=== PATIENT | male | born 1965 | race Two or more races ===

== ENCOUNTER 2020-05-06 11:29 | Inpatient (IN) | payer OTHER ==
[~2020-05-06] VITALS: Ht 175.3 cm; Wt 80.7 kg
[2020-05-06] MEDS ORDERED: IODIXANOL 320MG/ML 100ML BTL IV ONE (11:48)
[2020-05-06] MEDS ORDERED: LIDOCAINE 2%HCL (LOCAL ANESTH.) INJ 20ML MDV ONE (11:48)
[2020-05-06 11:56] LABS: Basophils # (auto) 0 10 ^3/uL (0-0.2); Basophils % (auto) 0.2 % (0.0-2.0); Eosinophils # (auto) 0 10 ^3/uL (0-0.8); Eosinophils % (auto) 0.3 % (0.0-7.0); Hematocrit 43.6 % (41.0-53.0); Hemoglobin 14.5 g/dL (13.5-17.5); Lymphocytes # (auto) 1.4 10 ^3/uL (0.4-5.4); Lymphocytes % (auto) 10.7 % (10.0-50.0); Mean Corpuscular Hemoglobin 30.5 pg (28.0-32.0); Mean Corpuscular Hgb Conc. 33.3 g/dL (32.0-36.0); Mean Corpuscular Volume 91.7 fL (80.0-100.0); Monocytes # (auto) 0.6 10 ^3/uL (0-1.3); Monocytes % (auto) 4.4 % (0.0-12.0); Neutrophils # (auto) 10.9 10 ^3/uL (1.6-8.6); Neutrophils % (auto) 84.4 % (37.0-80.0); Platelet Count (auto) 232 10^3/uL (140-450); Red Blood Cells 4.76 10^6/uL (4.5-5.90); Red Cell Distribution Width 12.9 % (11.8-14.3)
[2020-05-06 12:11] LABS: INR 1.01 (0.9-1.15); Partial Thromboplastin Time 26.5 sec (23.64-32.05)
[2020-05-06] MEDS ORDERED: MIDAZOLAM HCL 1MG/1ML-2 ML VIAL ONE (12:14)
[2020-05-06] MEDS ORDERED: fentaNYL CITRATE 100 MCG/2 ML VL ONE (12:14)
[2020-05-06] MEDS ORDERED: ANGIOMAX 250 MG VIAL IV ONE (12:14)
[2020-05-06 12:15] LABS: Albumin 4.2 g/dL (3.4-5.0); Calcium 8.9 mg/dL (8.5-10.1); Magnesium 2.4 mg/dL (1.6-2.6); Potassium 4.1 mmol/L (3.5-5.1)
[2020-05-06] MEDS ORDERED: SODIUM CHL 0.9% 50 ML ONE (12:15)
[2020-05-06 12:22] LABS: Bilirubin, Total 0.5 mg/dL (0.2-1.0)
[2020-05-06] MEDS ORDERED: EPTIFIBATIDE INJ (2MG/ML) 10ML VIAL IV ONE (12:33)
[2020-05-06] MEDS ORDERED: TICAGRELOR 90 MG TAB ONE (13:00)
[2020-05-06] MEDS ORDERED: ACETAMINOPHEN 500 MG TAB PO PRN (13:30)
[2020-05-06] MEDS ORDERED: NITROGLYCERIN 0.4 MG SL TAB SL PRN (13:30)
[2020-05-06] MEDS ORDERED: HYDROcodone-ACET 5/325MG TAB PO PRN (13:30)
[2020-05-06] MEDS ORDERED: MORPHINE SULF INJ 2 MG/ML SYRINGE 1ML IV PRN ×2 (13:30)
[2020-05-06] MEDS ORDERED: ONDANSETRON HCL 4 MG/2 ML VIAL IV PRN (13:30)
[2020-05-06] MEDS: SODIUM CHLOR 0.9% PF (SALINE LOCK) 10ML VIAL/SYR IV SCH ×2 (14:00→21:57)
--- NOTE | 2020-05-06 15:30 | NUR ---
Telemetry admit from label remover REJI PARSON admitted to Telemetry unit after SBAR received from label remover RN. Patient oriented to ROBIN MCELROY RN primary RN, unit, room, bed, and unit policies regarding patient care. Patient now on continuous telemetry monitoring, tele box # 58 and telemetry reading on arrival to unit is sinus rhythm 81. Patient placed on oxygen 2L NC, respirations even and unlabored. Patient is s/p left heart cath, dressing to right groin is clean, dry and intact. No signs of bleeding or hematoma noted at this time. Patient denies pain at this time. Patient instructed to be on bed rest until 1939, patient verbalized understanding. Bed in low and locked position, call light within reach. Will continue to monitor Q1 hour and PRN.
[2020-05-06 16:26] VITALS: BP 119/99
[2020-05-06 16:32] VITALS: BP 119/99
[2020-05-06] MEDS ORDERED: OPTISON 3ml Vial for INJ IV ONE (17:23)
--- NOTE | 2020-05-06 17:40 | NUR ---
outer diameter technician at bedside
--- NOTE | 2020-05-06 19:08 | NUR ---
Closing Note Report given to retail shift supervisor RN. No signs or symptoms of distress noted at this time.
--- NOTE | 2020-05-06 21:25 | NUR ---
Paged doctor Pino with the critical Troponin result of 107.000
--- NOTE | 2020-05-06 21:40 | NUR ---
Doctor Alvarez confirmed to receive my message regarding critical Troponin of 107.000. No orders.
[2020-05-06] MEDS: METOPROLOL TARTRATE 25 MG TAB PO SCH (21:58)
[2020-05-06] MEDS: PANTOPRAZOLE 40 MG TAB PO SCH (21:59)
[2020-05-06 22:00] VITALS: BP 125/80
[2020-05-07 02:25] LABS: Basophils # (auto) 0.1 10 ^3/uL (0-0.2); Basophils % (auto) 0.5 % (0.0-2.0); Eosinophils # (auto) 0 10 ^3/uL (0-0.8); Eosinophils % (auto) 0.4 % (0.0-7.0); Hemoglobin 15.5 g/dL (13.5-17.5); Lymphocytes # (auto) 1.6 10 ^3/uL (0.4-5.4); Lymphocytes % (auto) 12.9 % (10.0-50.0); Mean Corpuscular Hemoglobin 30.9 pg (28.0-32.0); Mean Corpuscular Hgb Conc. 33.8 g/dL (32.0-36.0); Mean Corpuscular Volume 91.5 fL (80.0-100.0); Monocytes # (auto) 0.8 10 ^3/uL (0-1.3); Monocytes % (auto) 6.6 % (0.0-12.0); Neutrophils # (auto) 10.1 10 ^3/uL (1.6-8.6); Neutrophils % (auto) 79.6 % (37.0-80.0); Nucleated Red Blood Cells % 0.1 %; Platelet Count (auto) 240 10^3/uL (140-450); Red Blood Cells 5.03 10^6/uL (4.5-5.90); Red Cell Distribution Width 13.3 % (11.8-14.3); White Blood Cell 12.7 10^3/uL (4.4-10.8)
[2020-05-07 02:40] LABS: Cholesterol 226 mg/dL (< 200)
[2020-05-07 02:42] LABS: Albumin 3.8 g/dL (3.4-5.0); Potassium 4.1 mmol/L (3.5-5.1)
[2020-05-07 02:43] LABS: HDL Cholesterol 37 mg/dL (40-59); LDL Cholesterol 154 mg/dL (< 100); Triglycerides 223 mg/dL (< 150)
[2020-05-07 03:01] LABS: Bilirubin, Total 0.9 mg/dL (0.2-1.0); Total Protein 7.8 g/dL (6.4-8.2)
[2020-05-07 05:00] VITALS: BP 107/70
[2020-05-07] MEDS: SODIUM CHLOR 0.9% PF (SALINE LOCK) 10ML VIAL/SYR IV SCH ×2 (06:16→14:03)
--- NOTE | 2020-05-07 07:00 | NUR ---
Opening Shift Note Received report on the patient. Awake lying in bed. Patient shows no signs of distress at this time. Discussed the plan of care with the patient. Bed in lowest position, side rails up x2, and call light is within reach.
[2020-05-07 09:00] VITALS: BP 98/65
[2020-05-07] MEDS ORDERED: TICAGRELOR 90 MG TAB PO SCH (10:00)
[2020-05-07] MEDS ORDERED: LOSARTAN POTASSIUM 25 MG TAB PO SCH (10:00)
[2020-05-07] MEDS ORDERED: ASPirin 81 mg TAB PO SCH (10:00)
[2020-05-07] MEDS: METOPROLOL TARTRATE 25 MG TAB PO SCH (10:00)
[2020-05-07] MEDS ORDERED: ATORVASTATIN 20 MG TAB PO SCH (10:00)
[2020-05-07] MEDS: PANTOPRAZOLE 40 MG TAB PO SCH (10:33)
[2020-05-07 11:43] LABS: Alcohol, Urine < 3.0 mg/dL (0-10); Amphetamine Screen, Urine NEGATIVE (NEGATIVE); Barbiturate Scree,Urine NEGATIVE (NEGATIVE); Benzodiazephine Screen, Urine POSITIVE (NEGATIVE); Cannabinoid Screen, Urine NEGATIVE (NEGATIVE); Cocaine Screen, Urine NEGATIVE (NEGATIVE); Opiate Scree,Urine NEGATIVE (NEGATIVE); Phencyclidine Screen, Urine NEGATIVE (NEGATIVE)
[2020-05-07] MEDS ORDERED: PANT40T PO (11:52)
[2020-05-07 12:53] VITALS: BP 105/63
[2020-05-07 13:00] VITALS: BP 105/63
== END 2020-05-07 15:13 | disposition home or self-care (01) | DRG 246 ==
LOC: ER 11:29 → TELE-WESTW 15:37
PROVIDERS: ADMIT Emergency Medicine; ATTEND Internal Medicine
PROC: 027034Z Dilation of Coronary Artery, One Artery with Drug-eluting Intraluminal Device, Percutaneous Approach (ICD-10-PCS; principal; 2020-05-06)
PROC: 02C03ZZ Extirpation of Matter from Coronary Artery, One Artery, Percutaneous Approach (ICD-10-PCS; 2020-05-06)
PROC: 4A023N7 Measurement of Cardiac Sampling and Pressure, Left Heart, Percutaneous Approach (ICD-10-PCS; 2020-05-06)
PROC: B211YZZ Fluoroscopy of Multiple Coronary Arteries using Other Contrast (ICD-10-PCS; 2020-05-06)
PROC: B215YZZ Fluoroscopy of Left Heart using Other Contrast (ICD-10-PCS; 2020-05-06)
PROC: B41C1ZZ Fluoroscopy of Pelvic Arteries using Low Osmolar Contrast (ICD-10-PCS; 2020-05-06)
DX: I21.09 ST elevation (STEMI) myocardial infarction involving other coronary artery of anterior wall (principal); I50.41 Acute combined systolic (congestive) and diastolic (congestive) heart failure; R65.10 Systemic inflammatory response syndrome (SIRS) of non-infectious origin without acute organ dysfunction; E78.5 Hyperlipidemia, unspecified; I25.10 Atherosclerotic heart disease of native coronary artery without angina pectoris; I25.5 Ischemic cardiomyopathy; Z79.82 Long term (current) use of aspirin; Z98.61 Coronary angioplasty status; Z79.899 Other long term (current) drug therapy
CPT/HCPCS: 36415; 71045; 80053; 80061; 80307; 83735; 84484; 85025; 85610; 85730; 86850; 86900; 86901; 93005; 93306; 99152; 99153; C1874; G0378; J2250; Q9956; Q9967